=== PATIENT | male | born 1975 | race Caucasian/White ===

== ENCOUNTER 2016-11-07 22:17 | Emergency (ER) | payer SELFPAY ==
--- NOTE | 2016-11-08 04:07 | DIAGNOSTIC IMAGING REPORT ---
PROCEDURE: XR CHEST 2 VIEW INDICATION: COUGH AND WHEEZING TECHNIQUE: PA and lateral views. COMPARISON: Compared to chest x-ray on 10/19/2015. FINDINGS: Lungs are clear. Heart and mediastinum are normal. Thorax is normal. IMPRESSION: 1. Negative chest.
--- NOTE | 2016-11-08 06:43 | ED NURSING NOTES ---
Clinical Report - Nurses [facility] [address] [place] [address] 11/07/2016 22:18 Patient: MAL CHAN TRIAGE Triage time 2240 PM. Acuity: LEVEL 4. Chief Complaint: FEVER, COUGH and SORE THROAT. Alert. No acute distress. SEPSIS SCREEN: Sepsis Screen. Negative (no infection suspected/documented). --22:50 Brenda Valentin R.N. 22:40 11/07/16. BP: 134/77. HR: 85. RR: 21. O2 saturation: 94% on room air. Temp: 97.5 F. Pain level now: 12/24. --22:50 Brenda Valentin R.N. Weight: 80.2 kg stated. Height/Length: 65 inches Per Patient. BMI: 29.5. --22:41 Brenda Valentin R.N. Medications None. --22:46 Brenda Valentin R.N. Allergies No Known Drug Allergy. --22:46 Brenda Valentin R.N. Medication/allergy information source: the patient. --22:50 Brenda Valentin R.N. History Arrived by private vehicle. Historian: patient. Accompanied by family. Primary physician (NONE). ( Pt states having a non productive cough for the past 2 weeks, has taken over the counter medicine with no relief, he states having pain when coughing, does admit to vomiting today x1, pt admits having fever one week ago. Pt has hx of asthma and has no inhaler. Pt states that has some trouble breathing.). Onset. (2 weeks). He has had chest congestion, chills, fatigue, a headache and vomiting. No sinus pain, photophobia, abdominal pain or diarrhea. No recent travel. 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 PAST MEDICAL HX: Immunizations: up-to-date. SOCIAL HX: Former smoker. Occasional alcohol use. No drug use. No recent travel. No known contact with a sick individual. ABUSE ASSESSMENT: No report of abuse. SELF HARM ASSESSMENT: A self harm assessment was performed. The patient answered "no" to the question "Do you have thoughts of harming or killing yourself?" and "Have you recently had thoughts about harming or killing others?". FALL RISK ASSESSMENT: Fall risk assessment completed. No fall risk identified. NUTRITIONAL RISK ASSESSMENT: The nutritional risk assessment revealed no deficiencies. FUNCTIONAL ASSESSMENT: Functional assessment: no impairments noted. LEARNING NEEDS ASSESSMENT: The learning needs assessment revealed no barriers. SKIN INTEGRITY ASSESSMENT: Skin integrity risk assessment completed. No skin integrity risk identified. --22:50 Brenda Valentin R.N. PROBLEMS: Pneumonia. Asthma. Bronchitis. --22:46 Brenda Valentin R.N. ADDITIONAL SURGERIES: no known surgeries. Interventions ID band on patient. --22:50 Brenda Valentin R.N. PHYSICAL ASSESSMENT Ambulatory to room. GENERAL / NEURO / PSYCH: Alert. Oriented X 4. Appears in no acute distress. HEENT: Pupils equal, round and reactive to light. Mucous membranes are pink. RESPIRATORY: Decreased breath sounds in the right upper lung; decreased breath sounds in the left upper lung. Inspiratory bilateral wheezes in the bases. CVS: Capillary refill less than 2 seconds. GI / : Abdomen soft and nontender. SKIN: Skin intact. Skin is warm and dry. Normal skin turgor. --22:51 Brenda Valentin R.N. NURSING PROGRESS NOTES The initial plan of care for this patient has been created This plan of care was discussed with the patient. Reassurance given. Two patient identifiers checked. Call light placed in reach. Side rails up x 1. Bed placed in lowest position. Brakes of bed on. Patient ready for evaluation. --22:51 Brenda Valentin R.N. 23:23 11/07/2016 Prednisone PO Tablets 60 mg given. Allergies verified and confirmed 5 rights. --23:23 Berhane Dodge R.N. 23:23 11/07/2016 Duoneb (Ipratropium-Albuterol) Neb TX Nebulizer 1 unit dose given. Given by the respiratory therapist. Allergies verified and confirmed 5 rights. --23:23 Berhane Dodge R.N. Patient transported to radiology by wheelchair with tech. --23:42 Berhane Dodge R.N. Patient returned from radiology by stretcher with tech. --23:46 Berhane Dodge R.N. 00:11 11/08/16. BP: 118/74 (regular adult cuff) taken on the left arm, via an automated monitor, while sitting. HR: 101. RR: 18. O2 saturation: 95% on nasal cannula at 2 liters/minute. Temp: 98.1 F (oral). Pain level now: 010. --00:13 Brenda Valentin R.N. Oxygen decreased to 2 liters by nasal cannula; oxygen by nasal cannula at 2 liters discontinued due to patient improvement. Pulse oximeter applied; monitor alarms on. Reassurance given. Reassessment after intervention and medication administered. He is calm and has had no adverse reaction. Overall patient status is improved- he states feels better. RESPIRATORY: The patient reports cough. Denies difficulty breathing. Decreased breath sounds right lung; left lung. Call light placed in reach. --00:13 Brenda Valentin R.N. 01:10 11/08/2016 Albuterol Neb TX Nebulizer 5 mg given. Given by the respiratory therapist. Allergies verified and confirmed 5 rights. --01:10 Ceci Rincon Oxygen administered by nasal cannula at 2 liters. Pulse oximeter applied; monitor alarms on. Reassurance given. Reassessment after medication administered. He is calm and has had no adverse reaction. Overall patient status is improved- he states feels better. ( Second tx given by RT, pt states feeling "less tight" attempted to wean off O2 sats went down to 88% on RA, placed back on O2 at 1 litter maintaining O2 at 94%. Pt updated, emotional support provided. Will monitor). GENERAL / NEURO / PSYCH: Denies headache. RESPIRATORY: The patient reports cough. Denies difficulty breathing. Call light placed in reach. Side rails up x 1. --01:38 Brenda Valentin R.N. 01:00 11/08/16. BP: 112/72. HR: 106. RR: 18. O2 saturation: 93% on nasal cannula at 2 liters/minute. Temp: 97.5 F (oral). Pain level now: 010. --01:38 Valentin, Brenda, R.N. Oxygen decreased to 1.5 liters by nasal cannula; oxygen by nasal cannula at 1.5 liters discontinued due to patient improvement. Care transferred and report given (GENA Ornelas). --01:45 Brenda Valentin R.N. ( Provider notified of patient vitals, patient improved but reports some cough still). --02:28 Ceci Rincon 02:26 11/08/16. BP: 106/69. HR: 105. RR: 20. O2 saturation: 95% on room air. Pain level now: 0/10. --02:28 Ceci Rincon ( PO fluids given, lights dimmed and warm blankets provided, patient and spouse updated regarding plan of care which is to observe patient until he is able to maintain an adequate Oxygen level.). --02:37 Ceci Rincon 03:32 11/08/16. BP: 113/68. HR: 90. RR: 20. O2 saturation: 91% on nasal cannula at 1 liters/minute. Pain level now: 0/10. --03:33 Ceci Rincon 04:17 11/08/2016 Duoneb (Ipratropium-Albuterol) Neb TX Nebulizer 1 unit dose given. Given by the nurse. Allergies verified and confirmed 5 rights. --04:17 Berhane Dodge, R.NWilliam ( Patient given trial on room air per provider request, patient unable to maintain oxygen saturation over 90%. Provider aware, breathing treatment ordered and plan of care discussed with patient and family). --04:37 Ceci Rincon ( RT at bedside). --04:45 Ceci Rincon 04:45 11/08/16. BP: 114/70. HR: 99. RR: 22. O2 saturation: 91% on nasal cannula at 2 liters/minute. --04:45 Ceci Rincon 06:02 11/08/16. BP: 103/65. HR: 85. RR: 20. O2 saturation: 93% on nasal cannula at 1 liters/minute. --06:03 Ceci Rincon ( Patient able to maintain oxygen at 91% or above, provider notified.). --06:35 Ceci Rincon 06:34 11/08/16. O2 saturation: 95% on room air. --06:35 Ceci Rincon. DISPOSITION / DISCHARGE 06:35 11/08/16. BP: 115/70. HR: 102. RR: 20. O2 saturation: 93% on room air. Temp: 97.8 F (oral). Pain level now: 0/10. --06:38 Ceci Rincon Condition at departure: improved and stable. The goals identified in the patient's plan of care were met. FALL RISK ASSESSMENT: Fall risk assessment completed. No fall risk identified. --06:38 Ceci Rincon No learning barriers present. Discharge instructions provided and reviewed with the patient and spouse. Reviewed medication(s) side effects, precautions, dosing and course information. Prescription(s) given to the patient. Reviewed nebulizer use instructions. Reviewed need for increased fluid intake. Work note given. Patient verbalized understanding. Written instructions provided in Azeri. ( Follow up with your PCP in three days. Return if symptoms worsen.). The patient was discharged by the physician. He was discharged home and accompanied by spouse. He left the Emergency Department ambulatory and via private vehicle. Spouse driving. --06:57 Ceci Rincon. Locked/Released at 11/08/2016 6:59 by Ceci Rincon,
--- NOTE | 2016-11-08 06:43 | ED CLINICAL REPORT ---
Clinical Report - Physicians/Mid Levels [facility] [address] [place] [place] [address] 11/07/2016 22:18 Patient: MAL CHAN Time Seen: 2300. Arrived- By private vehicle. Historian- patient. HISTORY OF PRESENT ILLNESS Chief Complaint: COUGH. This started past 2 weeks and is still present (staying the same). It was abrupt in onset and has been constant but is not gone now. The illness is described as moderate. The patient has had a cough and difficulty breathing. No fever, muscle aches or chills. Additional history - No known contact with a sick individual. No recent travel. (wheezing. reports this has been going on for the past 2 weeks. ran out of asthma medication. reports no night sweats or recent weight lost.). Similar symptoms previously: (a few times). Recent medical care: Not recently seen/assessed. REVIEW OF SYSTEMS No skin rash. All systems otherwise negative, except as recorded above. SOCIAL HISTORY Never smoker. No alcohol use or drug use. No recent travel. 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 ADDITIONAL NOTES The nursing notes have been reviewed. PHYSICAL EXAM Vital Signs: 11/07/2016 22:40 BP: 134/77. HR: 85. RR: 21. O2 saturation: 94%. Temp: 97.5 F. Pain level now: 5/10. Blood pressure normal. Oxygen saturation low. Appearance: Alert. No acute distress. Eyes: Pupils equal, round and reactive to light. Eyes normal inspection. ENT: Ears normal. Nose normal. Pharynx normal. Uvula midline. Neck: Normal inspection. Neck supple. CVS: Normal heart rate and rhythm. Heart sounds normal. Pulses normal. Respiratory: Mild respiratory distress. Moderately decreased breath sounds bilaterally. Expiratory moderate bilateral wheezes present. Abdomen: Soft and nontender. No organomegaly. Skin: Skin warm and dry. Normal skin color. No rash. Normal skin turgor. Extremities: Extremities exhibit normal ROM. No lower extremity edema. LABS, X-RAYS, AND EKG Chest X-ray: (PROCEDURE: XR CHEST 2 VIEW INDICATION: COUGH AND WHEEZING TECHNIQUE: PA and lateral views. COMPARISON: Compared to chest x-ray on 10/19/2015. FINDINGS: Lungs are clear. Heart and mediastinum are normal. Thorax is normal. IMPRESSION: 1. Negative chest.). The X-rays were independently viewed by me and interpreted by the radiologist. The X-rays were discussed with the radiologist (via pacs). PROGRESS AND PROCEDURES Course of Care: The patient is a pleasant 41-year-old male with past medical history significant for asthma presented for evaluation of wheezing. Patient likely has respiratory tract infection that has been causing the patient's to wheeze. Patient does not have any asthma medication available to him as he had run out. The patient is noted to be wheezing significantly here in the emergency department. Patient is nontoxic. Patient is agreeable to treatment plan. Patient has been given albuterol nebulizer treatments with ipratropium as well as steroids. We'll monitor closely. Patient is noted to have significant improvement with her breathing treatments provided after each dose. The patient however continued to be hypoxic. Because of the patient's continued hypoxia, was likely due to the patient's alveoli opening up. There was likely a ventilation perfusion mismatch. Do not fill patient is being admitted however patient will be monitored in the hospital for reversal of the hypoxia. Patient is agreeable to treatment plan. Patient was monitored here in the emergency room several hours. Patient continued have no respiratory distress. Because of the patient's continued hypoxia he was monitored for over 8 hours here in the emergency department. Prior to patient's departure in the emergency Department however patient was noted to have normal levels of oxygen saturation on room air. Patient had reversed nicely. Do not feel patient needs to be admitted. Patient has no wheezing on examination and lungs are clear to auscultation bilaterally. Medications for acute asthma exacerbation as well as steroids were provided. Because the patient has been coughing for approximately 2 weeks, antibiotics have been considered and had discussion patient in regards to symptoms here. Because of this, antibiotics have been prescribed. Feel the benefits outweigh the risks. Work note provided to the H and spouse who is been at the patient's bedside since arrival here in the emergency department. Disposition: Discharged. Condition: good. CLINICAL IMPRESSION 11/08/2016 06:35 BP: 115/70. HR: 102. RR: 20. O2 saturation: 93%. Temp: 97.8 F. Pain level now: 0/10. 11/08/2016 06:34 O2 saturation: 95%. Blood pressure normal. Oxygen saturation normal. Moderate persistent asthma with an acute exacerbation. No status asthmaticus. Hypoxia (acute resolved). INSTRUCTIONS Off work today, tomorrow. Warnings: GENERAL WARNINGS: Return or contact your physician immediately if your condition worsens or changes unexpectedly, if not improving as expected, or if other problems arise. Specifically return if pain, vomiting, bleeding, breathing difficulty or fever. Your Current Medications: CONTINUE TAKING THE FOLLOWING MEDICATIONS: None*. Prescription Medications: Albuterol HFA oral inhaler: inhale 1-2 puffs every 4 hours as needed for wheezing, difficulty breathing or shortness of breath. Dispense one (1) unit. No refill. Prednisone 50 mg: take 1 orally every day for 5 days. Dispense five (5). No refills. Albuterol 0.083% Inhalation Solution: inhale 1 unit dose (3 mL) via nebulizer every 4 hours as needed for wheezing, difficulty breathing or shortness of breath. Dispense fifty (50) units. No refill. Nebulizer machine. For use with nebulizer solution. Disp 1 machine. Follow-up: Return to the emergency department as needed. Follow up with your doctor in three days. Reason for referral: recheck today's concerns. Summary of care provided to patient via paper. Screening today revealed the patient's blood pressure to be in the normal range. The patient should follow up with a primary care provider for blood pressure management. Understanding of the discharge instructions verbalized by patient and parent. (Electronically signed by Juan David Decker Dr. 11/10/2016 4:22)
--- NOTE | 2016-11-08 06:43 | ED ORDER SUMMARY ---
..... Patient: MAL CHAN OrderSheet [facility] VisitID: [id number] [place] [address] 41y, M Registration Date/Time: 11/07/2016 ORDER SHEET Weight: 80.2 kg (stated) Allergies: No Known Drug Allergy GENERAL ORDERS: Chest 2V Urgent (23:07 11/07/2016 Farhad Ruiz) (Ack 23:12 AMcQuoid ER Tech1) (23:50 GUnger) Pulse oximeter (23:10 11/07/2016 Farhad Ruiz) (Ack 23:12 AMcQuoid ER Tech1) (23:19 JDeElena R.N.) MEDICATION ORDERS: Prednisone PO 60 mg (NOW) (23:08 11/07/2016 Farhad Ruiz) (Ack 23:19 JDeElena R.N.) (23:23 JDeElena R.N.) DuoNeb Neb Tx 1 unit dose (NOW) (23:08 11/07/2016 Farhad Ruiz) (Ack 23:19 JDeElena R.N.) (23:23 JDeElena R.N.) Albuterol Neb Tx 5 mg (NOW) (00:59 11/08/2016 Farhad Ruiz) (1:10 HSoule) DuoNeb Neb Tx 1 unit dose (NOW) (04:06 11/08/2016 Farhad Ruiz) (Ack 4:15 JDeElena R.N.) (4:17 JDeElena R.N.) IV FLUIDS: ORDER SHEET NOTES: [Electronically signed by Ceci Rincon (06:59 11/08/2016)] [Electronically signed by Juan David Decker Dr. (04:22 11/10/2016)] [Electronically locked/signed by Ceci Rincon (06:59 11/08/2016)]
--- NOTE | 2016-11-08 06:43 | ED ORDER SUMMARY ---
..... Patient: MAL CHAN OrderSheet [facility] VisitID: [id number] [place] [address] 41y, M Registration Date/Time: 11/07/2016 ORDER SHEET Weight: 80.2 kg (stated) Allergies: No Known Drug Allergy GENERAL ORDERS: Chest 2V Urgent (23:07 11/07/2016 Farhad Ruiz) (Ack 23:12 AMcQuoid ER Tech1) (23:50 GUnger) Pulse oximeter (23:10 11/07/2016 Farhad Ruiz) (Ack 23:12 AMcQuoid ER Tech1) (23:19 JDeElena R.N.) MEDICATION ORDERS: Prednisone PO 60 mg (NOW) (23:08 11/07/2016 Farhad Ruiz) (Ack 23:19 JDeElena R.N.) (23:23 JDeElena R.N.) DuoNeb Neb Tx 1 unit dose (NOW) (23:08 11/07/2016 Farhad Ruiz) (Ack 23:19 JDeElena R.N.) (23:23 JDeElena R.N.) Albuterol Neb Tx 5 mg (NOW) (00:59 11/08/2016 Farhad Ruiz) (1:10 HSoule) DuoNeb Neb Tx 1 unit dose (NOW) (04:06 11/08/2016 Farhad Ruiz) (Ack 4:15 JDeElena R.N.) (4:17 JDeElena R.N.) IV FLUIDS: ORDER SHEET NOTES: [Electronically signed by Ceci Rincon (06:59 11/08/2016)] [Electronically signed by Juan David Decker Dr. (04:22 11/10/2016)] [Electronically locked/signed by Ceci Rincon (06:59 11/08/2016)]
--- NOTE | 2016-11-10 04:23 | ED MED RECONCILIATION SUMMARY ---
Patient: MAL CHAN Medication Reconciliation Report [facility] VisitID: [id number] [place] [address] 41y, M Registration Date/Time: 11/07/2016 Weight: 80.2 kg Height/Length: 65 in. BMI: 29.5 ALLERGIES: No Known Drug Allergy The patient's Home Medications are listed below: NONE. The source(s) of the original Home Medication information: patient The following Medications were given to the patient in the Emergency Department: Prednisone [PO] PO 60 mg, administered: 11/07/2016 11:23:00 PM Duoneb [Neb Tx] Neb TX 1 unit dose, administered: 11/07/2016 11:23:00 PM Albuterol [Neb Tx] Neb TX 5 mg, administered: 11/08/2016 1:10:00 AM Duoneb [Neb Tx] Neb TX 1 unit dose, administered: 11/08/2016 4:17:00 AM The following Medications were prescribed to the patient: Nebulizer machine. For use with nebulizer solution. Disp 1 machine. -- Juan David Decker Dr. Albuterol HFA oral inhaler: inhale 1-2 puffs every 4 hours as needed for wheezing, difficulty breathing or shortness of breath. Dispense one (1) unit. No refill. -- Juan David Decker Dr. Prednisone 50 mg: take 1 orally every day for 5 days. Dispense five (5). No refills. -- Juan David Decker Dr. Albuterol 0.083% Inhalation Solution: inhale 1 unit dose (3 mL) via nebulizer every 4 hours as needed for wheezing, difficulty breathing or shortness of breath. Dispense fifty (50) units. No refill. -- Juan David Decker Dr.
--- NOTE | 2016-11-10 04:23 | ED MAR SUMMARY ---
..... Medication Administration Record [facility] [address] [place] [address] Patient: MAL CHAN Visit ID: [id number] 41y, M Weight: 80.2 kg Height/Length: 65 in BMI: 29.5 ALLERGIES: No Known Drug Allergy Given 23:11/07/2016 Berhane Dodge R.N. Medication Administered: PREDNISONE [PO], Dose: 60 mg Tablets PO. Medication Ordered: Prednisone PO 60 mg (NOW). Given 23:11/07/2016 Berhane Dodge R.N. Medication Administered: DUONEB [NEB TX] (IPRATROPIUM-ALBUTEROL), Dose: 1 unit dose Nebulizer Neb TX. Medication Ordered: DuoNeb Neb Tx 1 unit dose (NOW). Given 01:10 11/08/2016 Ceci Rincon, Medication Administered: ALBUTEROL [NEB TX], Dose: 5 mg Nebulizer Neb TX. Medication Ordered: Albuterol Neb Tx 5 mg (NOW). Given 04:17 11/08/2016 Berhane Dodge RWilliamNWilliam Medication Administered: DUONEB [NEB TX] (IPRATROPIUM-ALBUTEROL), Dose: 1 unit dose Nebulizer Neb TX. Medication Ordered: DuoNeb Neb Tx 1 unit dose (NOW).
--- NOTE | 2016-11-10 04:23 | ED MAR SUMMARY ---
..... Medication Administration Record [facility] [address] [place] [address] Patient: MAL CHAN Visit ID: [id number] 41y, M Weight: 80.2 kg Height/Length: 65 in BMI: 29.5 ALLERGIES: No Known Drug Allergy Given 23:11/07/2016 Berhane Dodge R.N. Medication Administered: PREDNISONE [PO], Dose: 60 mg Tablets PO. Medication Ordered: Prednisone PO 60 mg (NOW). Given 23:11/07/2016 Berhane Dodge R.N. Medication Administered: DUONEB [NEB TX] (IPRATROPIUM-ALBUTEROL), Dose: 1 unit dose Nebulizer Neb TX. Medication Ordered: DuoNeb Neb Tx 1 unit dose (NOW). Given 01:10 11/08/2016 Ceci Rincon, Medication Administered: ALBUTEROL [NEB TX], Dose: 5 mg Nebulizer Neb TX. Medication Ordered: Albuterol Neb Tx 5 mg (NOW). Given 04:17 11/08/2016 Berhane Dodge RWilliamNWilliam Medication Administered: DUONEB [NEB TX] (IPRATROPIUM-ALBUTEROL), Dose: 1 unit dose Nebulizer Neb TX. Medication Ordered: DuoNeb Neb Tx 1 unit dose (NOW).
--- NOTE | 2016-11-10 04:23 | ED DISCHARGE INSTRUCTIONS ---
Patient: MAL CHAN General Instructions [facility] VisitID: [id number] [place] [address] 41y, M Registration Date/Time: 11/07/2016 11/08/2016 06:35 BP: 115/70. HR: 102. RR: 20. O2 saturation: 93%. Temp: 97.8 F. Pain level now: 0/10. 11/08/2016 06:34 O2 saturation: 95%. Blood pressure normal. Oxygen saturation normal. Moderate persistent asthma with an acute exacerbation. No status asthmaticus. Hypoxia (acute resolved). INSTRUCTIONS Off work today, tomorrow. Warnings: GENERAL WARNINGS: Return or contact your physician immediately if your condition worsens or changes unexpectedly, if not improving as expected, or if other problems arise. Specifically return if pain, vomiting, bleeding, breathing difficulty or fever. Your Current Medications: CONTINUE TAKING THE FOLLOWING MEDICATIONS: None*. Prescription Medications: Albuterol HFA oral inhaler: inhale 1-2 puffs every 4 hours as needed for wheezing, difficulty breathing or shortness of breath. Dispense one (1) unit. No refill. Prednisone 50 mg: take 1 orally every day for 5 days. Dispense five (5). No refills. Albuterol 0.083% Inhalation Solution: inhale 1 unit dose (3 mL) via nebulizer every 4 hours as needed for wheezing, difficulty breathing or shortness of breath. Dispense fifty (50) units. No refill. Nebulizer machine. For use with nebulizer solution. Disp 1 machine. Follow-up: Return to the emergency department as needed. Follow up with your doctor in three days. Reason for referral: recheck today's concerns. Summary of care provided to patient via paper. Screening today revealed the patient's blood pressure to be in the normal range. The patient should follow up with a primary care provider for blood pressure management. Understanding of the discharge instructions verbalized by patient and parent. ADDITIONAL INFORMATION Asthma [Adult] Asthma is a disease where the small air passages within the lung go into spasm and restrict the flow of air. Inflammation and swelling of the airways cause further restriction. During an acute asthma attack, these factors cause difficulty breathing, wheezing, cough and chest tightness. An asthma attack can be triggered by many things. Common triggers include the common cold, bronchitis, pneumonia, irritants such as smoke or pullutants in the air, emotional upset and heavy exercise. Inmany adults with asthma, allergies todust, mold, pollen and animal dander can cause an asthma attack. Skipping doses of daily asthma medicine can also bring on an asthma attack. Asthma can be controlled with proper medicines and decreased exposure to known allergens. Home Care: Take prescribed medicine exactly at the times advised. If you have a hand-held inhaler or aerosol breathing medicine, do not use it more than once every four hours, unless told to do so. (If you need this medicine more than every four hours, you may need to return to the Emergency Room.) If prescribed an antibiotic or prednisone, take all of the medicine even if you are feeling better after a few days. Do not smoke. Avoid being exposed to the smoke of others. Some persons with asthma have worsening of their symptoms when they take aspirin and non-steroidal medicines like ibuprofen (Motrin, Advil) and naproxen (Aleve, Naprosyn). Talk to your doctor if you think this may apply to you. Acetaminophen (Tylenol)should be safe to use. Follow Up with your doctor, or as advised by our staff. Always bring all of your current medicines with you for your doctor to see. If you do not already have one, talk to your doctor about developing a personalized "Asthma Action Plan." [NOTE: A pneumococcal vaccine and yearly flu shot (every fall) are recommended. Ask your doctor about this.] Get Prompt Medical Attention if any of the following occur: Increased wheezing or shortness of breath Need to use your inhalers more often than usual without relief Fever of 100.4F (38C) or higher, or as directed by your healthcare provider Coughing up lots of dark-colored or bloody sputum (mucus) Chest pain with each breath You do not start to improve within 24 hours Call 911 If Any Of The Following Occur : Trouble walking or talking because of shortness of breath If you use a peak flow meter andyou are still in the red zone (less than 50 percent) 15 minutes after using inhaler medication Lips or fingernails turning quezada or blue Albuterol Sulfate Pressurized inhalation, suspension What is this medicine? ALBUTEROL (al BYOO ter ole) is a bronchodilator. It helps open up the airways in your lungs to make it easier to breathe. This medicine is used to treat and to prevent bronchospasm. How should I use this medicine? This medicine is for inhalation through the mouth. Follow the directions on your prescription label. Take your medicine at regular intervals. Do not use more often than directed. Make sure that you are using your inhaler correctly. Ask you doctor or health care provider if you have any questions. Talk to your detective automobile section regarding the use of this medicine in children. Special care may be needed. What side effects may I notice from receiving this medicine? Side effects that you should report to your doctor or health care director rn as soon as possible: allergic reactions like skin rash, itching or hives, swelling of the face, lips, or tongue breathing problems chest pain feeling faint or lightheaded, falls high blood pressure irregular heartbeat fever muscle cramps or weakness pain, tingling, numbness in the hands or feet vomiting Side effects that usually do not require medical attention (report to your doctor or health care director rn if they continue or are bothersome): cough difficulty sleeping headache nervousness or trembling stomach upset stuffy or runny nose throat irritation unusual taste What may interact with this medicine? anti-infectives like chloroquine and pentamidine caffeine cisapride diuretics medicines for colds medicines for depression or for emotional or psychotic conditions medicines for weight loss including some herbal products methadone some antibiotics like clarithromycin, erythromycin, levofloxacin, and linezolid some heart medicines steroid hormones like dexamethasone, cortisone, hydrocortisone theophylline thyroid hormones What if I miss a dose? If you miss a dose, use it as soon as you can. If it is almost time for your next dose, use only that dose. Do not use double or extra doses. Where should I keep my medicine? Keep out of the reach of children. Store at room temperature between 15 and 30 degrees C (59 and 86 degrees F). The contents are under pressure and may burst when exposed to heat or flame. Do not freeze. This medicine does not work as well if it is too cold. Throw away any unused medicine after the expiration date. Inhalers need to be thrown away after the labeled number of puffs have been used or by the expiration date; whichever comes first. Ventolin HFA should be thrown away 12 months after removing from foil pouch. Check the instructions that come with your medicine. What should I tell my health care provider before I take this medicine? They need to know if you have any of the following conditions: diabetes heart disease or irregular heartbeat high blood pressure pheochromocytoma seizures thyroid disease an unusual or allergic reaction to albuterol, levalbuterol, sulfites, other medicines, foods, dyes, or preservatives or trying to get breast-feeding What should I watch for while using this medicine? Tell your doctor or health care director rn if your symptoms do not improve. Do not use extra albuterol. If your asthma or bronchitis gets worse while you are using this medicine, call your doctor right away. If your mouth gets dry try chewing sugarless gum or sucking hard candy. Drink water as directed. Prednisone Oral tablet What is this medicine? PREDNISONE (PRED ni sone) is a corticosteroid. It is commonly used to treat inflammation of the skin, joints, lungs, and other organs. Common conditions treated include asthma, allergies, and arthritis. It is also used for other conditions, such as blood disorders and diseases of the adrenal glands. How should I use this medicine? Take this medicine by mouth with a glass of water. Follow the directions on the prescription label. Take this medicine with food. If you are taking this medicine once a day, take it in the morning. Do not take more medicine than you are told to take. Do not suddenly stop taking your medicine because you may develop a severe reaction. Your doctor will tell you how much medicine to take. If your doctor wants you to stop the medicine, the dose may be slowly lowered over time to avoid any side effects. Talk to your detective automobile section regarding the use of this medicine in children. Special care may be needed. What side effects may I notice from receiving this medicine? Side effects that you should report to your doctor or health care director rn as soon as possible: allergic reactions like skin rash, itching or hives, swelling of the face, lips, or tongue changes in emotions or moods changes in vision depressed mood eye pain fever or chills, cough, sore throat, pain or difficulty passing urine increased thirst swelling of ankles, feet Side effects that usually do not require medical attention (report to your doctor or health care director rn if they continue or are bothersome): confusion, excitement, restlessness headache nausea, vomiting skin problems, acne, thin and shiny skin trouble sleeping weight gain What may interact with this medicine? Do not take this medicine with any of the following medications: metyrapone mifepristone This medicine may also interact with the following medications: aminoglutethimide amphotericin B aspirin and aspirin-like medicines barbiturates certain medicines for diabetes, like glipizide or glyburide cholestyramine cholinesterase inhibitors cyclosporine digoxin diuretics ephedrine female hormones, like estrogens and control pills isoniazid ketoconazole NSAIDS, medicines for pain and inflammation, like ibuprofen or naproxen phenytoin rifampin toxoids vaccines warfarin What if I miss a dose? If you miss a dose, take it as soon as you can. If it is almost time for your next dose, talk to your doctor or health care director rn. You may need to miss a dose or take an extra dose. Do not take double or extra doses without advice. Where should I keep my medicine? Keep out of the reach of children. Store at room temperature between 15 and 30 degrees C (59 and 86 degrees F). Protect from light. Keep container tightly closed. Throw away any unused medicine after the expiration date. What should I tell my health care provider before I take this medicine? They need to know if you have any of these conditions: [place]'s syndrome diabetes glaucoma heart disease high blood pressure infection (especially a virus infection such as chickenpox, cold sores, or herpes) kidney disease liver disease mental illness myasthenia gravis osteoporosis seizures stomach or intestine problems thyroid disease an unusual or allergic reaction to lactose, prednisone, other medicines, foods, dyes, or preservatives or trying to get breast-feeding What should I watch for while using this medicine? Visit your doctor or health care director rn for regular checks on your progress. If you are taking this medicine over a prolonged period, carry an identification card with your name and address, the type and dose of your medicine, and your doctor's name and address. This medicine may increase your risk of getting an infection. Tell your doctor or health care director rn if you are around anyone with measles or chickenpox, or if you develop sores or blisters that do not heal properly. If you are going to have surgery, tell your doctor or health care director rn that you have taken this medicine within the last twelve months. Ask your doctor or health care director rn about your diet. You may need to lower the amount of salt you eat. This medicine may affect blood sugar levels. If you have diabetes, check with your doctor or health care director rn before you change your diet or the dose of your diabetic medicine. Albuterol Sulfate Nebulizer solution What is this medicine? ALBUTEROL (al BYOO ter ole) is a bronchodilator. It helps to open up the airways in your lungs to make it easier to breathe. This medicine is used to treat and to prevent bronchospasm. How should I use this medicine? This medicine is used in a nebulizer. Nebulizers make a liquid into an aerosol that you breathe in through your mouth or your mouth and nose into your lungs. You will be taught how to use your nebulizer. Follow the directions on your prescription label. Take your medicine at regular intervals. Do not use more often than directed. Talk to your detective automobile section regarding the use of this medicine in children. Special care may be needed. What side effects may I notice from receiving this medicine? Side effects that you should report to your doctor or health care director rn as soon as possible: allergic reactions like skin rash, itching or hives, swelling of the face, lips, or tongue breathing problems chest pain feeling faint or lightheaded, falls high blood pressure irregular heartbeat fever muscle cramps or weakness pain, tingling, numbness in the hands or feet vomiting Side effects that usually do not require medical attention (report to your doctor or health care director rn if they continue or are bothersome): cough difficulty sleeping headache nervousness, trembling stomach upset stuffy or runny nose throat irritation unusual taste What may interact with this medicine? anti-infectives like chloroquine and pentamidine caffeine cisapride diuretics medicines for colds medicines for depression or emotional or psychotic conditions medicines for weight loss including some herbal products methadone some antibiotics like clarithromycin, erythromycin, levofloxacin, and linezolid some heart medicines steroid hormones like dexamethasone, cortisone, hydrocortisone theophylline thyroid hormones What if I miss a dose? If you miss a dose, use it as soon as you can. If it is almost time for your next dose, use only that dose. Do not use double or extra doses. Where should I keep my medicine? Keep out of the reach of children. Store between 2 and 25 degrees C (36 and 77 degrees F). Do not freeze. Protect from light. Throw away any unused medicine after the expiration date. Most products are kept in the foil package until time of use. Some products can be used up to 1 week after they are removed from the foil pouch. Check the instructions that come with your medicine. What should I tell my health care provider before I take this medicine? They need to know if you have any of the following conditions: diabetes heart disease or irregular heartbeat high blood pressure pheochromocytoma seizures thyroid disease an unusual or allergic reaction to albuterol, levalbuterol, sulfites, other medicines, foods, dyes, or preservatives or trying to get breast-feeding What should I watch for while using this medicine? Tell your doctor or health care director rn if your symptoms do not improve. Do not use extra albuterol. Call your doctor right away if your asthma or bronchitis gets worse while you are using this medicine. If your mouth gets dry try chewing sugarless gum or sucking hard candy. Drink water as directed. You have been given the following additional information: Asthma, Acute (Adult) Albuterol Sulfate Pressurized inhalation, suspension Prednisone Oral tablet Albuterol Sulfate Nebulizer solution Off work today, tomorrow. (Electronically signed by Juan David Decker Dr. 11/10/2016 4:22)
--- NOTE | 2016-11-10 04:23 | ED DISCHARGE INSTRUCTIONS ---
Patient: MAL CHAN General Instructions [facility] VisitID: [id number] [place] [address] 41y, M Registration Date/Time: 11/07/2016 11/08/2016 06:35 BP: 115/70. HR: 102. RR: 20. O2 saturation: 93%. Temp: 97.8 F. Pain level now: 0/10. 11/08/2016 06:34 O2 saturation: 95%. Blood pressure normal. Oxygen saturation normal. Moderate persistent asthma with an acute exacerbation. No status asthmaticus. Hypoxia (acute resolved). INSTRUCTIONS Off work today, tomorrow. Warnings: GENERAL WARNINGS: Return or contact your physician immediately if your condition worsens or changes unexpectedly, if not improving as expected, or if other problems arise. Specifically return if pain, vomiting, bleeding, breathing difficulty or fever. Your Current Medications: CONTINUE TAKING THE FOLLOWING MEDICATIONS: None*. Prescription Medications: Albuterol HFA oral inhaler: inhale 1-2 puffs every 4 hours as needed for wheezing, difficulty breathing or shortness of breath. Dispense one (1) unit. No refill. Prednisone 50 mg: take 1 orally every day for 5 days. Dispense five (5). No refills. Albuterol 0.083% Inhalation Solution: inhale 1 unit dose (3 mL) via nebulizer every 4 hours as needed for wheezing, difficulty breathing or shortness of breath. Dispense fifty (50) units. No refill. Nebulizer machine. For use with nebulizer solution. Disp 1 machine. Follow-up: Return to the emergency department as needed. Follow up with your doctor in three days. Reason for referral: recheck today's concerns. Summary of care provided to patient via paper. Screening today revealed the patient's blood pressure to be in the normal range. The patient should follow up with a primary care provider for blood pressure management. Understanding of the discharge instructions verbalized by patient and parent. ADDITIONAL INFORMATION Asthma [Adult] Asthma is a disease where the small air passages within the lung go into spasm and restrict the flow of air. Inflammation and swelling of the airways cause further restriction. During an acute asthma attack, these factors cause difficulty breathing, wheezing, cough and chest tightness. An asthma attack can be triggered by many things. Common triggers include the common cold, bronchitis, pneumonia, irritants such as smoke or pullutants in the air, emotional upset and heavy exercise. Inmany adults with asthma, allergies todust, mold, pollen and animal dander can cause an asthma attack. Skipping doses of daily asthma medicine can also bring on an asthma attack. Asthma can be controlled with proper medicines and decreased exposure to known allergens. Home Care: Take prescribed medicine exactly at the times advised. If you have a hand-held inhaler or aerosol breathing medicine, do not use it more than once every four hours, unless told to do so. (If you need this medicine more than every four hours, you may need to return to the Emergency Room.) If prescribed an antibiotic or prednisone, take all of the medicine even if you are feeling better after a few days. Do not smoke. Avoid being exposed to the smoke of others. Some persons with asthma have worsening of their symptoms when they take aspirin and non-steroidal medicines like ibuprofen (Motrin, Advil) and naproxen (Aleve, Naprosyn). Talk to your doctor if you think this may apply to you. Acetaminophen (Tylenol)should be safe to use. Follow Up with your doctor, or as advised by our staff. Always bring all of your current medicines with you for your doctor to see. If you do not already have one, talk to your doctor about developing a personalized "Asthma Action Plan." [NOTE: A pneumococcal vaccine and yearly flu shot (every fall) are recommended. Ask your doctor about this.] Get Prompt Medical Attention if any of the following occur: Increased wheezing or shortness of breath Need to use your inhalers more often than usual without relief Fever of 100.4F (38C) or higher, or as directed by your healthcare provider Coughing up lots of dark-colored or bloody sputum (mucus) Chest pain with each breath You do not start to improve within 24 hours Call 911 If Any Of The Following Occur : Trouble walking or talking because of shortness of breath If you use a peak flow meter andyou are still in the red zone (less than 50 percent) 15 minutes after using inhaler medication Lips or fingernails turning quezada or blue Albuterol Sulfate Pressurized inhalation, suspension What is this medicine? ALBUTEROL (al BYOO ter ole) is a bronchodilator. It helps open up the airways in your lungs to make it easier to breathe. This medicine is used to treat and to prevent bronchospasm. How should I use this medicine? This medicine is for inhalation through the mouth. Follow the directions on your prescription label. Take your medicine at regular intervals. Do not use more often than directed. Make sure that you are using your inhaler correctly. Ask you doctor or health care provider if you have any questions. Talk to your corporate associate attorney regarding the use of this medicine in children. Special care may be needed. What side effects may I notice from receiving this medicine? Side effects that you should report to your doctor or health rn homecare as soon as possible: allergic reactions like skin rash, itching or hives, swelling of the face, lips, or tongue breathing problems chest pain feeling faint or lightheaded, falls high blood pressure irregular heartbeat fever muscle cramps or weakness pain, tingling, numbness in the hands or feet vomiting Side effects that usually do not require medical attention (report to your doctor or health rn homecare if they continue or are bothersome): cough difficulty sleeping headache nervousness or trembling stomach upset stuffy or runny nose throat irritation unusual taste What may interact with this medicine? anti-infectives like chloroquine and pentamidine caffeine cisapride diuretics medicines for colds medicines for depression or for emotional or psychotic conditions medicines for weight loss including some herbal products methadone some antibiotics like clarithromycin, erythromycin, levofloxacin, and linezolid some heart medicines steroid hormones like dexamethasone, cortisone, hydrocortisone theophylline thyroid hormones What if I miss a dose? If you miss a dose, use it as soon as you can. If it is almost time for your next dose, use only that dose. Do not use double or extra doses. Where should I keep my medicine? Keep out of the reach of children. Store at room temperature between 15 and 30 degrees C (59 and 86 degrees F). The contents are under pressure and may burst when exposed to heat or flame. Do not freeze. This medicine does not work as well if it is too cold. Throw away any unused medicine after the expiration date. Inhalers need to be thrown away after the labeled number of puffs have been used or by the expiration date; whichever comes first. Ventolin HFA should be thrown away 12 months after removing from foil pouch. Check the instructions that come with your medicine. What should I tell my health care provider before I take this medicine? They need to know if you have any of the following conditions: diabetes heart disease or irregular heartbeat high blood pressure pheochromocytoma seizures thyroid disease an unusual or allergic reaction to albuterol, levalbuterol, sulfites, other medicines, foods, dyes, or preservatives or trying to get breast-feeding What should I watch for while using this medicine? Tell your doctor or health rn homecare if your symptoms do not improve. Do not use extra albuterol. If your asthma or bronchitis gets worse while you are using this medicine, call your doctor right away. If your mouth gets dry try chewing sugarless gum or sucking hard candy. Drink water as directed. Prednisone Oral tablet What is this medicine? PREDNISONE (PRED ni sone) is a corticosteroid. It is commonly used to treat inflammation of the skin, joints, lungs, and other organs. Common conditions treated include asthma, allergies, and arthritis. It is also used for other conditions, such as blood disorders and diseases of the adrenal glands. How should I use this medicine? Take this medicine by mouth with a glass of water. Follow the directions on the prescription label. Take this medicine with food. If you are taking this medicine once a day, take it in the morning. Do not take more medicine than you are told to take. Do not suddenly stop taking your medicine because you may develop a severe reaction. Your doctor will tell you how much medicine to take. If your doctor wants you to stop the medicine, the dose may be slowly lowered over time to avoid any side effects. Talk to your corporate associate attorney regarding the use of this medicine in children. Special care may be needed. What side effects may I notice from receiving this medicine? Side effects that you should report to your doctor or health rn homecare as soon as possible: allergic reactions like skin rash, itching or hives, swelling of the face, lips, or tongue changes in emotions or moods changes in vision depressed mood eye pain fever or chills, cough, sore throat, pain or difficulty passing urine increased thirst swelling of ankles, feet Side effects that usually do not require medical attention (report to your doctor or health rn homecare if they continue or are bothersome): confusion, excitement, restlessness headache nausea, vomiting skin problems, acne, thin and shiny skin trouble sleeping weight gain What may interact with this medicine? Do not take this medicine with any of the following medications: metyrapone mifepristone This medicine may also interact with the following medications: aminoglutethimide amphotericin B aspirin and aspirin-like medicines barbiturates certain medicines for diabetes, like glipizide or glyburide cholestyramine cholinesterase inhibitors cyclosporine digoxin diuretics ephedrine female hormones, like estrogens and control pills isoniazid ketoconazole NSAIDS, medicines for pain and inflammation, like ibuprofen or naproxen phenytoin rifampin toxoids vaccines warfarin What if I miss a dose? If you miss a dose, take it as soon as you can. If it is almost time for your next dose, talk to your doctor or health rn homecare. You may need to miss a dose or take an extra dose. Do not take double or extra doses without advice. Where should I keep my medicine? Keep out of the reach of children. Store at room temperature between 15 and 30 degrees C (59 and 86 degrees F). Protect from light. Keep container tightly closed. Throw away any unused medicine after the expiration date. What should I tell my health care provider before I take this medicine? They need to know if you have any of these conditions: [place]'s syndrome diabetes glaucoma heart disease high blood pressure infection (especially a virus infection such as chickenpox, cold sores, or herpes) kidney disease liver disease mental illness myasthenia gravis osteoporosis seizures stomach or intestine problems thyroid disease an unusual or allergic reaction to lactose, prednisone, other medicines, foods, dyes, or preservatives or trying to get breast-feeding What should I watch for while using this medicine? Visit your doctor or health rn homecare for regular checks on your progress. If you are taking this medicine over a prolonged period, carry an identification card with your name and address, the type and dose of your medicine, and your doctor's name and address. This medicine may increase your risk of getting an infection. Tell your doctor or health rn homecare if you are around anyone with measles or chickenpox, or if you develop sores or blisters that do not heal properly. If you are going to have surgery, tell your doctor or health rn homecare that you have taken this medicine within the last twelve months. Ask your doctor or health rn homecare about your diet. You may need to lower the amount of salt you eat. This medicine may affect blood sugar levels. If you have diabetes, check with your doctor or health rn homecare before you change your diet or the dose of your diabetic medicine. Albuterol Sulfate Nebulizer solution What is this medicine? ALBUTEROL (al BYOO ter ole) is a bronchodilator. It helps to open up the airways in your lungs to make it easier to breathe. This medicine is used to treat and to prevent bronchospasm. How should I use this medicine? This medicine is used in a nebulizer. Nebulizers make a liquid into an aerosol that you breathe in through your mouth or your mouth and nose into your lungs. You will be taught how to use your nebulizer. Follow the directions on your prescription label. Take your medicine at regular intervals. Do not use more often than directed. Talk to your corporate associate attorney regarding the use of this medicine in children. Special care may be needed. What side effects may I notice from receiving this medicine? Side effects that you should report to your doctor or health rn homecare as soon as possible: allergic reactions like skin rash, itching or hives, swelling of the face, lips, or tongue breathing problems chest pain feeling faint or lightheaded, falls high blood pressure irregular heartbeat fever muscle cramps or weakness pain, tingling, numbness in the hands or feet vomiting Side effects that usually do not require medical attention (report to your doctor or health rn homecare if they continue or are bothersome): cough difficulty sleeping headache nervousness, trembling stomach upset stuffy or runny nose throat irritation unusual taste What may interact with this medicine? anti-infectives like chloroquine and pentamidine caffeine cisapride diuretics medicines for colds medicines for depression or emotional or psychotic conditions medicines for weight loss including some herbal products methadone some antibiotics like clarithromycin, erythromycin, levofloxacin, and linezolid some heart medicines steroid hormones like dexamethasone, cortisone, hydrocortisone theophylline thyroid hormones What if I miss a dose? If you miss a dose, use it as soon as you can. If it is almost time for your next dose, use only that dose. Do not use double or extra doses. Where should I keep my medicine? Keep out of the reach of children. Store between 2 and 25 degrees C (36 and 77 degrees F). Do not freeze. Protect from light. Throw away any unused medicine after the expiration date. Most products are kept in the foil package until time of use. Some products can be used up to 1 week after they are removed from the foil pouch. Check the instructions that come with your medicine. What should I tell my health care provider before I take this medicine? They need to know if you have any of the following conditions: diabetes heart disease or irregular heartbeat high blood pressure pheochromocytoma seizures thyroid disease an unusual or allergic reaction to albuterol, levalbuterol, sulfites, other medicines, foods, dyes, or preservatives or trying to get breast-feeding What should I watch for while using this medicine? Tell your doctor or health rn homecare if your symptoms do not improve. Do not use extra albuterol. Call your doctor right away if your asthma or bronchitis gets worse while you are using this medicine. If your mouth gets dry try chewing sugarless gum or sucking hard candy. Drink water as directed. You have been given the following additional information: Asthma, Acute (Adult) Albuterol Sulfate Pressurized inhalation, suspension Prednisone Oral tablet Albuterol Sulfate Nebulizer solution Off work today, tomorrow. (Electronically signed by Juan David Decker Dr. 11/10/2016 4:22)
--- NOTE | 2016-11-10 04:23 | ED MED RECONCILIATION SUMMARY ---
Patient: MAL CHAN Medication Reconciliation Report [facility] VisitID: [id number] [place] [address] 41y, M Registration Date/Time: 11/07/2016 Weight: 80.2 kg Height/Length: 65 in. BMI: 29.5 ALLERGIES: No Known Drug Allergy The patient's Home Medications are listed below: NONE. The source(s) of the original Home Medication information: patient The following Medications were given to the patient in the Emergency Department: Prednisone [PO] PO 60 mg, administered: 11/07/2016 11:23:00 PM Duoneb [Neb Tx] Neb TX 1 unit dose, administered: 11/07/2016 11:23:00 PM Albuterol [Neb Tx] Neb TX 5 mg, administered: 11/08/2016 1:10:00 AM Duoneb [Neb Tx] Neb TX 1 unit dose, administered: 11/08/2016 4:17:00 AM The following Medications were prescribed to the patient: Nebulizer machine. For use with nebulizer solution. Disp 1 machine. -- Juan David Decker Dr. Albuterol HFA oral inhaler: inhale 1-2 puffs every 4 hours as needed for wheezing, difficulty breathing or shortness of breath. Dispense one (1) unit. No refill. -- Juan David Decker Dr. Prednisone 50 mg: take 1 orally every day for 5 days. Dispense five (5). No refills. -- Juan David Decker Dr. Albuterol 0.083% Inhalation Solution: inhale 1 unit dose (3 mL) via nebulizer every 4 hours as needed for wheezing, difficulty breathing or shortness of breath. Dispense fifty (50) units. No refill. -- Juan David Decker Dr.
== END 2016-11-08 06:50 | disposition home or self-care (01) ==
LOC: ED SRH 22:17
DX: J45.41 Moderate persistent asthma with (acute) exacerbation (principal); R09.02 Hypoxemia